=== PATIENT | male | born 1980 | race African-American/Black ===

== ENCOUNTER 2017-06-16 15:09 | Emergency (ER) | payer MEDICAID ==
[~2017-06-16] VITALS: Ht 177.8 cm; Wt 82.0 kg
[2017-06-16 15:30] VITALS: BP 119/73
== END 2017-06-16 20:27 | disposition left against medical advice (07) ==
LOC: ER 15:09
DX: Z53.21 Procedure and treatment not carried out due to patient leaving prior to being seen by health care provider (principal); F41.9 Anxiety disorder, unspecified; Z88.2 Allergy status to sulfonamides

== ENCOUNTER 2017-06-17 10:09 | Emergency (ER) | payer MEDICAID ==
[~2017-06-17] VITALS: Ht 177.8 cm; Wt 102.0 kg
[2017-06-17 10:59] VITALS: BP 101/68
== END 2017-06-17 11:00 | disposition home or self-care (01) ==
LOC: ER 10:19
DX: Z13.89 Encounter for screening for other disorder (principal); Z88.2 Allergy status to sulfonamides
CPT/HCPCS: 99281

== ENCOUNTER 2017-11-12 05:15 | Emergency (ER) | payer MEDICAID ==
[~2017-11-12] VITALS: Ht 177.8 cm; Wt 106.0 kg
[2017-11-12] MEDS ORDERED: DICYCLOMINE 10 MG/5 ML ORAL SYR PO STA (06:41)
[2017-11-12] MEDS ORDERED: VISCOUS LIDOCAINE 2% 15 ML UDC PO STA (06:41)
[2017-11-12] MEDS ORDERED: MAGNESIUM/ALUMINUM HYDROXIDE/SIMETHICONE 30ML UDC PO STA (06:41)
[2017-11-12] MEDS ORDERED: FAMOTIDINE 20MG TABLET PO ONE (06:45)
[2017-11-12 07:30] VITALS: BP 121/68
== END 2017-11-12 07:45 | disposition home or self-care (01) ==
LOC: ER 05:15
DX: R07.9 Chest pain, unspecified (principal); Z88.2 Allergy status to sulfonamides
CPT/HCPCS: 71045; 93005; 99284